=== PATIENT | male | born 1965 | race Caucasian/White ===

== ENCOUNTER 2024-09-20 17:20 | Emergency (ER) | payer OTHER, SELFPAY ==
[2024-09-20 17:30] VITALS: BP 164/80; PULSE 58; TEMP 37.2; O2SAT 96; BMI 31.2
--- NOTE | 2024-09-20 17:45 | ED.GENADUL1 ---
HPI HPI - General Adult General Chief complaint: Skin/Abscess/Foreign Body Stated complaint: SWOLLEN LIP Time Seen by Provider: 09/20/24 17:32 Source: patient Mode of arrival: walk-in Limitations: no limitations History of Present Illness HPI narrative: Patient presents to the emergency department with focal area of swelling to the upper lip that has been ongoing for the past several days. Patient and provide history that patient had skin cancer removed approximately 3 months ago from that area. Within the past month the patient was seen due to swelling of the area and was treated with antibiotics. Aspiration by dermatology when there was 2 days left of antibiotics showed no significant sign of abscess at that time. Family states that the swelling never completely resolved though it did improve with the antibiotics. Patient was supposed to have outpatient ultrasound imaging of the area but order was never placed. Patient was doing yard work few days ago and had recurrence of the swelling. Patient denies any sore throat or trouble swallowing Location: Reports mouth (upper lip) Severity: mild Quality: Reports constant (worse with palpation) Related Data Home Medications ?Medication ?Instructions ?Recorded ?Confirmed amlodipine 5 mg tablet 5 mg PO DAILY 09/20/24 09/20/24 atorvastatin 10 mg tablet 10 mg PO DAILY 09/20/24 09/20/24 levothyroxine 175 mcg tablet 175 mcg PO DAILY 09/20/24 09/20/24 (Synthroid) losartan 100 mg tablet 100 mg PO DAILY 09/20/24 09/20/24 metoprolol succinate 50 mg 50 mg PO DAILY 09/20/24 09/20/24 tablet,extended release 24 hr mycophenolate sodium 360 mg 360 mg PO Q12H 09/20/24 09/20/24 tablet,delayed release prednisone 5 mg tablet 5 mg PO DAILY 09/20/24 09/20/24 tacrolimus 1 mg capsule, 2 mg PO BEDTIME 09/20/24 09/20/24 immediate-release tacrolimus 1 mg capsule, 3 mg PO DAILY 09/20/24 09/20/24 immediate-release tadalafil 10 mg tablet 10 mg PO DAILY 09/20/24 09/20/24 Previous Rx's ?Medication ?Instructions ?Recorded cefdinir 300 mg capsule 300 mg PO BID 10 days #20 caps 09/20/24 Allergies Allergy/AdvReac Type Severity Reaction Status Date / Time morphine Allergy Severe Anaphylaxis Verified 09/20/24 17:30 Sulfa (Sulfonamide Allergy Unknown Unknown Verified 09/20/24 17:30 Antibiotics) PFSH PFSH Social History Little interest or pleasure in doing things: not at all Feeling down, depressed, or hopeless: not at all Exam Constitutional Vital Signs, click to edit/add: Last Vital Signs Temp 98.9 F 09/20/24 17:30 Pulse 58 L 09/20/24 17:30 Resp 16 09/20/24 17:30 BP 164/80 H 09/20/24 17:30 Pulse Ox 96 09/20/24 17:30 O2 Del Method Nasal Cannula 09/20/24 17:30 Course Vital Signs Vital signs: Vital Signs Temperature 98.9 F 09/20/24 17:30 Pulse Rate 58 L 09/20/24 17:30 Respiratory Rate 16 09/20/24 17:30 Blood Pressure 164/80 H 09/20/24 17:30 Pulse Oximetry 96 09/20/24 17:30 Oxygen Delivery Method Nasal Cannula 09/20/24 17:30 Temperature 98.9 F 09/20/24 17:30 Pulse Rate 58 L 09/20/24 17:30 Respiratory Rate 16 09/20/24 17:30 Blood Pressure 164/80 H 09/20/24 17:30 Pulse Oximetry 96 09/20/24 17:30 Oxygen Delivery Method Nasal Cannula 09/20/24 17:30 Medical Decision Making MDM Narrative Medical decision making narrative: Patient presented to the emergency department requesting ultrasound of localized swelling to the left upper lip. Patient was afebrile and nontoxic in appearance. There is no secondary angioedema symptoms associated with this. Mild overlying erythema surrounding the area. Ultrasound was obtained that shows a hyperechoic area without drainable fluid collection. Given the patient had improvement with antibiotics he will be placed back on cefdinir and referred to his [employer] and plastic surgeon for outpatient follow Differential Diagnosis Differential Diagnosis: Cellulitis, lipoma, abscess, cancerous mass, seroma Medical Records Medical records reviewed: Yes I reviewed the patient's medical records Imaging Data US - abdomen: Attestation: I have reviewed the pertinent imaging results. Radiologist's impression: ITS Impressions Head/Neck Ultrasound 09/20/24 17:59 IMPRESSION: Heterogeneous hyperechoic 2.1 cm lesion in region of the upper lip. No drainable fluid collection. No abnormal hypervascularity. Impression dictated by: Sudarshan Ortiz M.D. 09/20/2024 7:14 PM Dictation Location: [email or web address] Electronically authenticated by: [id number] Y Date: 09/20/2024 19:14 Discharge Plan Discharge Chief Complaint: Skin/Abscess/Foreign Body Clinical Impression: Mass of soft tissue Patient Disposition: Home, Self-Care Time of Disposition Decision: 19:27 Prescriptions / Home Meds: New cefdinir 300 mg capsule 300 mg PO BID 10 Days Qty: 20 0RF No Action amlodipine 5 mg tablet 5 mg PO DAILY atorvastatin 10 mg tablet 10 mg PO DAILY losartan 100 mg tablet 100 mg PO DAILY metoprolol succinate 50 mg tablet extended release 24 hr 50 mg PO DAILY mycophenolate sodium 360 mg tablet,delayed release (DR/EC) 360 mg PO Q12H prednisone 5 mg tablet 5 mg PO DAILY tacrolimus 1 mg capsule 3 mg PO DAILY tadalafil 10 mg tablet 10 mg PO DAILY levothyroxine [Synthroid] 175 mcg tablet 175 mcg PO DAILY tacrolimus 1 mg capsule 2 mg PO BEDTIME Print Language: Bulgarian Instructions: Soft Tissue Mass (ED) Referrals: Physician,Non-Staff, MD [Primary Care Provider] - 1 week
--- NOTE | 2024-09-20 17:59 | US_ITS ---
The [address] [address] Patient Name: WAYNE NICE MRN: [id number] date: 1965 Sex: M Assigned Patient Location: ED.MAIN Current Patient Location: ED.MAIN Accession/Order Number: [id number] Exam Date: 09/20/2024 19:12 Report Date: 09/20/2024 19:14 At the request of: ADEOLA WALLACE Procedure: US soft tissue head and neck Ultrasound involving the upper lip HISTORY: History of the skin cancer. History of plastic surgery April 2024. There is identification of a hypoechoic area in region of left swelling measuring 2.1 x 1.8 x 2.1 cm. There are no drainable fluid collection. No abnormal vascularity. US/US soft tissue head and neck IMPRESSION: Heterogeneous hyperechoic 2.1 cm lesion in region of the upper lip. No drainable fluid collection. No abnormal hypervascularity. Impression dictated by: Sudarshan Ortiz M.D. 09/20/2024 7:14 PM Dictation Location: [facility] Electronically authenticated by: [id number] Y Date: 09/20/2024 19:14
--- NOTE | 2024-09-20 18:03 | PC.NURSE ---
PT HAS HX SKIN CAA REMOVAL 3 MONTH AGO TO UPPER LIP. 1 MONTH AGO PT DEVELOPED SWELLING TO LEFT UPPER LIP. PT COMPLETED ABX 1.5 WKS AGO AND HAD LIP ASPIRATED AND WAS TOLD NOT ABSCESSED. PT STATES LIP SWELLING GOT SLIGHTLY BETTER AFTER ABX BUT NEVER COMPLETELY WENT AWAY. PAINFUL TO TOUCH
--- NOTE | 2024-09-20 19:08 | PC.NURSE ---
Report received. Care assumed.
--- NOTE | 2024-09-20 19:25 | PC.NURSE ---
PA in to see pt.
== END 2024-09-20 19:34 | disposition home or self-care (01) ==
PROVIDERS: Emergency Provider Emergency Medicine
DX: K13.0 Diseases of lips (principal); Z85.828 Personal history of other malignant neoplasm of skin
CPT/HCPCS: 76536; 99284